=== PATIENT | female | born 1970 | race Caucasian/White ===

== ENCOUNTER → 2017-11-20 11:46 | Outpatient (REF) | payer MEDICAID, SELFPAY ==
[2017-11-20 20:00] LABS: Abs Immature Grans 0.02 k/cumm (0.0-0.09); Absolute Basophil Count 0.09 k/cumm (0.0-0.2); Absolute Eosinophil Count 0.31 k/cumm (0.0-0.7); Absolute Lymphocyte Count 3.51 k/cumm (1.2-3.4); Absolute Monocyte Count 1.31 k/cumm (0.11-0.7); Absolute Neutrophil Count 4.17 k/cumm (1.2-6.7); Eosinophils % 3.3; HCT 35.9 % (36.0-46.0); Immature Grans % 0.2; Lymphocytes % 37.3; Mean Corp. HGB Concentration 33.4 g/dL (32.0-36.0); Mean Corpuscular Volume 92.8 fL (80-95); Mean Platelet Volume 11.5 fL (8.0-11.0); Monocytes % 13.9; Neutrophils % 44.3; Platelet Count 176 x1000/uL (130-400); RBC 3.87 m/cumm (4.00-5.20); RBC Distribution Width 14.3 % (11.7-14.6); White Blood Cell Count 9.41 k/cumm (4.4-10.8)
[2017-11-20 20:24] LABS: ALT 20 U/L (12-78); AST 20 U/L (15-37); Albumin 3.7 g/dL (3.4-5.0); Alkaline Phosphatase 94 U/L (46-116); Anion Gap 11.7 mmol/L (3-11); BUN 11 mg/dL (7-18); Bilirubin, Total 0.4 mg/dL (0.2-1.0); CO2 25.3 mmol/L (21.0-32.0); CREATININE 0.77 mg/dL (0.55-1.02); Calcium 8.6 mg/dL (8.5-10.1); Chloride 104 mmol/L (98-107); Glucose 91 mg/dL (70-100); Potassium 4.1 mmol/L (3.5-5.1); Sodium 141 mmol/L (136-145); TSH 1.78 uIU/mL (0.358-3.74); Total Protein 7.4 g/dL (6.4-8.2)
[2017-11-20 21:05] LABS: ESR 20 MM/HR (0-20)
== END ==
LOC: NCHCN 11:46
PROVIDERS: PCP Nurse Practitioner Family; Visit Provider Nurse Practitioner Family
DX: F41.8 Other specified anxiety disorders (principal); N93.8 Other specified abnormal uterine and vaginal bleeding
CPT/HCPCS: 80053; 85652; 84443; 85025

== ENCOUNTER 2017-12-10 13:09 | Outpatient (REF) | payer MEDICAID, SELFPAY ==
[2017-12-10 16:07] LABS: ALT 17 U/L (12-78); AST 21 U/L (15-37); Albumin 3.3 g/dL (3.4-5.0); Alkaline Phosphatase 78 U/L (46-116); Amylase 50 U/L (25-115); Anion Gap 7.4 mmol/L (3-11); BUN 16 mg/dL (7-18); Bilirubin, Total 0.5 mg/dL (0.2-1.0); CO2 22.6 mmol/L (21.0-32.0); CREATININE 0.58 mg/dL (0.55-1.02); Calcium 7.9 mg/dL (8.5-10.1); Chloride 107 mmol/L (98-107); Glucose 80 mg/dL (70-100); Potassium 3.4 mmol/L (3.5-5.1); Sodium 137 mmol/L (136-145); Total Protein 6.9 g/dL (6.4-8.2)
[2017-12-10 17:13] LABS: Abs Immature Grans 0.02 k/cumm (0.0-0.09); Absolute Basophil Count 0.06 k/cumm (0.0-0.2); Absolute Eosinophil Count 0.23 k/cumm (0.0-0.7); Absolute Lymphocyte Count 1.78 k/cumm (1.2-3.4); Absolute Monocyte Count 1.16 k/cumm (0.11-0.7); Absolute Neutrophil Count 5.46 k/cumm (1.2-6.7); Basophils % 0.7; Eosinophils % 2.6; HCT 32.9 % (36.0-46.0); HGB 10.9 g/dL (12.0-15.5); Immature Grans % 0.2; Lymphocytes % 20.4; Mean Corp. HGB Concentration 33.1 g/dL (32.0-36.0); Mean Corpuscular Hemoglobin 30.4 pg (27.0-33.0); Mean Corpuscular Volume 91.9 fL (80-95); Monocytes % 13.3; Neutrophils % 62.8; Platelet Count 134 x1000/uL (130-400); RBC 3.58 m/cumm (4.00-5.20); White Blood Cell Count 8.71 k/cumm (4.4-10.8)
[2017-12-10 17:54] LABS: ESR 21 MM/HR (0-20)
[2017-12-10 19:07] LABS: Bilirubin Negative (Negative); Blood Large (Negative); Clarity Clear; Glucose Negative (Negative); Ketones Negative (Negative); Leukocyte Esterase Negative (Negative); Nitrite Negative (Negative); Specific Gravity 1.015 (1.005-1.025); Urobilinogen 0.2 EU/dL (Up TO 0.2)
[2017-12-10 19:27] LABS: Bacteria Many HPF (Negative); C & S Indicated? No/Sq. Contamination; Casts Negative LPF (Negative); Crystals Negative HPF (Negative); Epithelial Cells Many HPF (Negative); Mucus Negative (Negative); Other Cells Negative (Negative)
== END 2017-12-10 13:29 ==
LOC: NCHCN 13:09
PROVIDERS: PCP Nurse Practitioner Family; Visit Provider Nurse Practitioner Family
DX: R10.11 Right upper quadrant pain (principal)
CPT/HCPCS: 80053; 85652; 81003; 81015; 82150; 85025

== ENCOUNTER → 2017-12-10 13:59 | Outpatient (CLI) | payer MEDICAID, SELFPAY ==
--- NOTE | 2017-12-10 11:52 | DI.US_ITS ---
SYMPTOMS/DIAGNOSIS: RT UPPER QUAD PAIN AFTER EATING FOR 3 WKS, ? CHOLELITHIASIS , + MAJANO'S SIGN, R10.11 ABDOMINAL ULTRASOUND: The visualized liver parenchymal is normal in appearance. There is no evidence of cholelithiasis or biliary dilatation. The pancreas appears intact as visualized although the tail was not seen. The spleen has been surgically removed. The kidneys are unremarkable in appearance with no evidence of a renal mass, hydronephrosis or nephrolithiasis. The abdominal aorta and IVC are of normal diameter. CONCLUSION: Negative abdominal ultrasound.
== END ==
PROVIDERS: PCP Nurse Practitioner Family; Visit Provider Nurse Practitioner Family
DX: R10.11 Right upper quadrant pain (principal); Z90.81 Acquired absence of spleen
CPT/HCPCS: 76700

== ENCOUNTER 2017-12-11 12:00 | Emergency (ER) | payer MEDICAID, SELFPAY ==
[2017-12-11 12:14] VITALS: BP 122/76; PULSE 66; RESP 18; TEMP 36.6; O2SAT 100
--- NOTE | 2017-12-11 12:38 | W.ED.GENAD ---
Discharge Plan Disposition Patient Disposition: HOME Condition: Fair Discharge Details Chief Complaint: Abd Prob Clinical Impression: Abdominal pain Primary Care Provider: Elham Ware ED Provider: Michelle Dodge Home Meds and New Rx's Prescriptions: Continue omeprazole 40 MG capsule,delayed release(DR/EC) 40 mg PO BID Qty: 30 RF: 3 acetaminophen [Tylenol] 325 MG tablet 325 mg PO PRN PRNRF: 0 albuterol sulfate [ProAir HFA] 200 PUFF HFA aerosol inhaler 2 inh Inhalation Q4H PRN PRN (Reason: Shortness Of Breath) Qty: 1 RF: 1 No Action fluticasone [Flovent HFA] 220 mcg/actuation Hfa Aerosol Inhaler 2 puff INHALATION DAILY RF: 0 Discharge Instructions Instructions: Abdominal Pain (ED) Additional Instructions: Encourage hydration. Continue with Tylenol as needed for discomfort. Please keep upcoming appointment on Saturday with Dr. Mohamud. [facility] an [facility] at [facility] Develop new or worsening symptoms please seek care urgently once again. Try to continue with a very light diet between now and when you are evaluated by surgery. Referrals: Ashlee Mohamud MD [ [facility] STAFF PHYSICIAN] - Discharge Data Discharge Date/Time-TO BE ENTERED AT DEPARTURE: 12/11/17 14:56 Medical Decision Making MDM Narrative Medical decision making narrative: Patient presents with cc of RUQ abdominal pain x 3 weeks. Reports that pain is worse after eating. Has not noted a change based on types of food, all has the same effect. Endorses early satiety. Denies fever/chills. Has felt bloated and nauseated. Denies vomiting. States that she has not tried anything for her pain, states that, as she has history of ulcers, she was advised not to take Ibuprofen. Patient has been seen by her PCP, underwent a US which was normal. Was started on Omeprazole which she has taken in the past, has not yet noted an improvement in her symptoms. On exam, her abdomen appears bloated. She endorses pain in epigastric and RUQ region. Normal bowel sounds. No peritoneal findings. She has an area of ecchymosis on the right flank, she reports she fell 3 weeks ago. This is concerning as it coincides with the onset of her symptoms. No CVA tenderness. Normal bowel and urinary habits per patient. Will obtain CT and laboratory evaluation. Patient will be given Zofran and Morphine. Patient feels much improved after above medication. Spoke with radiologist who advised no acute abnormality on CT. Does not see any signs of trauma. Advised that her endometrium is heterogeneous but reports that this could be cycle driven. Advised f/u with pelvic ultrasound as needed. Diverticulum is noted but no acute diverticulitis. Laboratory evaluation without significant abnormality. Patient is noted to be slightly anemic but this is not new for the patient. Discussed findings with the patient. At this point, it does not seem to be her gallbladder as was her primary concern, no findings to suggest cholecystitis. No evidence of trauma on imaging. Labs are reassuring, no drop in hemoglobin or change in liver function. She has an upcoming appointment in 2 days with general surgery, I did call to confirm this appointment. Advised kulwant tthis may be associated with gastric source especially as she has history of ulcer. Advised she may need repeat EGD but that this would be discussed with general surgery. Discussed new/worsneing symptoms and when to seek care urgently once again. All of her questions and concerns were addressed, she is in agreement with this plan. Advised on BRAT diet and that she continue with Omeprazole. HPI - General Adult General Date/Time Provider Initiated Documentation: 12/11/17 12:22. Limitations to Documentation: no limitations. Information obtained by: patient. HPI Narrative: Patient is a 47-year-old female presenting today with chief complaint of right upper quadrant pain. She reports the pain is progressive and increasing over the past 3 weeks. Patient does report fall where she struck her right mid back just prior to the onset of symptoms. She reports food intake and make her symptoms worse. As noted her abdomen to be bloated, burning and pinching. Was seen by her primary care, underwent an outpatient ultrasound yesterday which showed no acute abnormalities. Laboratory evaluation was also obtained and primary was concerned that patient may have concerning pathology needing surgical intervention. Patient has not been seen by general surgeon. Patient is status post splenectomy for thrombocytopenia. Related Data Home Medications Medication Instructions Recorded Confirmed acetaminophen [Tylenol] 325 mg PO PRN PRN 12/01/13 12/13/17 fluticasone [Flovent HFA] 2 puff INHALATION DAILY 12/13/17 12/13/17 Previous Rx's Medication Instructions Recorded albuterol sulfate [ProAir HFA] 2 inh INHALATION Q4H PRN PRN #1 inh 12/07/15 Allergies Allergy/AdvReac Type Severity Reaction Status Date / Time codeine AdvReac Intermediate vomiting Unverified 08/23/16 20:20 ibuprofen AdvReac Intermediate GI upset Unverified 08/23/16 20:20 tramadol AdvReac Intermediate sick Unverified 08/23/16 20:20 General Stated Complaint: Abd Prob SANJIV: 3 Review of Systems Constitutional Reports as per HPI, Denies body ache(s), Denies chills, Denies fever(s), Denies headache(s) and Reports poor appetite ENT Denies headache(s) Cardiovascular Denies chest pain, Denies chest pain at rest, Denies chest pain with activity, Denies syncope, Denies rapid heart rate, Denies edema and Denies dyspnea on exertion Respiratory Denies chest congestion, Denies cough, Denies pain on inspiration, Denies pain with cough, Denies dyspnea on exertion and Denies wheezing Gastrointestinal Reports as per HPI Genitourinary Denies abnormal vaginal bleeding, Denies urinary frequency, Denies dyspareunia, Denies dysuria and Denies flank pain Musculoskeletal Reports back pain (states that right sided abdomenal pain can radiate toward the right side of the back. 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) GERD with esophagitis (Suspected) PTSD (post-traumatic stress disorder) (Chronic) Herniated intervertebral disc of lumbar spine (Chronic) Depression (Chronic) Nephrolithiasis (Chronic) Panic anxiety syndrome (Chronic) Phlebitis (Inactive) Social History household members: spouse caffeine: Yes Type: carbonated beverages and coffee Smoking/Tobacco Use Status: Current every day counseling given: provider counseling alcohol intake: current alcohol intake frequency: a few times a week substance use type: does not use Surgical History History of esophagogastroduodenoscopy (EGD) (Inactive) Hx of section (Inactive) Hx of appendectomy (Inactive) Hx of tubal ligation (Inactive) Exam Const General: cooperative, healthy appearing, uncomfortable (patient is moving frequently, pain is RUQ evident by her splinting this area), no acute distress, well developed and well groomed Nutritional Appearance: average body habitus Orientation: alert and awake HENNY Mouth: abnormal oral mucosae (dry mucosa) Eyes General: appearance normal, both eyes and all related structures Resp Effort & Inspection: normal respiratory effort, able to speak in complete sentences and no respiratory distress Auscultation: clear to auscultation bilaterally Cardio Rate: regular rate Rhythm: regular rhythm Heart Sounds: S1 normal and S2 normal GI Inspection: no abdominal wall ecchymosis, no edema, distended, incision (well healed) and no visible herniation Palpation: soft, no hepatosplenomegaly, no aortic enlargement, not firm, no guarding, no pulsatile masses and not rigid Percussion: normal to percussion Auscultation: normal bowel sounds Back/Spine/Pelvis Back: no CVA tenderness (patient has no pain but a small area of ecchymosis is noted over the right flank, she reports at this time that she fell 3 weeks ago and struck this area) and No Cadena-Barahona sign present Thoracic/Lumbar Spine: thoracic and lumbar spine normal to inspection Skin General skin exam: no rashes or lesions noted Neuro General: alert and awake Cognition: normal cognition Speech: speech normal Gait: normal gait Extrem General: normal to inspection, no calf tenderness bilaterally, no edema and no pedal edema Psych Appearance: grossly normal and well kempt Mental Status: mental status grossly normal Speech and Movement: speech and movement normal Mood: congruent mood Affect: normal affect Attitude: cooperative Thought Process: normal Course Vital Signs Temperature 36.6 C 12/11/17 12:14 Pulse 66 12/11/17 12:14 Respiratory Rate 12/11/17 12:14 Blood Pressure 122/76 12/11/17 12:14 Pulse Oximetry 100 12/11/17 12:14 Temperature 36.6 C 12/11/17 12:14 Pulse 66 12/11/17 12:14 Respiratory Rate 18 12/11/17 12:14 Blood Pressure 122/76 12/11/17 12:14 Pulse Oximetry 100 12/11/17 12:14
--- NOTE | 2017-12-11 12:42 | DI.CT_ITS ---
SYMPTOMS/DIAGNOSIS: RIGHT UPPER QUADRANT PAIN, BLOATING, TRAUMA [address] SCAN OF THE ABDOMEN AND PELVIS: CT scan was performed following the uneventful administration of intravenous contrast material. Comparison is 08/23/16. The visualized lung bases are clear. No evidence of a basilar pneumothorax or infiltrate is seen. The liver, pancreas, gallbladder and adrenal glands are unremarkable. The spleen is absent. The kidneys show normal and symmetric enhancement. No evidence of a solid renal mass or obstruction. The urinary bladder is intact. The central uterus appears heterogeneous. This may represent a thickened endometrium. The ovaries appear grossly unremarkable. There is diverticulosis of the colon, but no evidence of acute diverticulitis. The bowel shows no evidence of obstruction or inflammation. No findings to suggest an acute appendicitis are present. The aorta is of normal caliber. Incidental note is made of a retroaortic left renal vein. No significant abdominal or pelvic adenopathy, ascites or pneumoperitoneum is seen. No fracture is identified. IMPRESSION: 1. No evidence of acute abdominal or pelvic organ injury. No evidence of an acute fracture. 2. Heterogenous endometrium and central uterus. This may represent a normal menstrual cycle. Multiple uterine fibroids cannot be excluded. Endometrial uterine mass should also be considered. If further imaging is warranted, a pelvic ultrasound should be considered. These findings were discussed with Michelle Dodge of the Emergency Department on the date of the examination.
[2017-12-11] MEDS: Lactated Ringers 1,000 ML 1000 ML IV (12:48)
[2017-12-11] MEDS: MORPHine 10 MG/ML VIAL 2 MG IVP ×2 (12:50→13:26)
[2017-12-11] MEDS: Ondansetron 4 MG/2 ML VIAL IVP (12:51)
[2017-12-11 13:07] LABS: HCT 33.7 % (36.0-46.0); HGB 11.2 g/dL (12.0-15.5); Mean Corp. HGB Concentration 33.2 g/dL (32.0-36.0); Mean Corpuscular Hemoglobin 30.5 pg (27.0-33.0); Mean Corpuscular Volume 91.8 fL (80-95); Mean Platelet Volume 11.5 fL (8.0-11.0); RBC 3.67 m/cumm (4.00-5.20); RBC Distribution Width 13.9 % (11.7-14.6); White Blood Cell Count 10.41 k/cumm (4.4-10.8)
[2017-12-11 13:25] LABS: ALT 19 U/L (12-78); AST 20 U/L (15-37); Albumin 3.4 g/dL (3.4-5.0); Alkaline Phosphatase 82 U/L (46-116); Anion Gap 8.8 mmol/L (3-11); BUN 14 mg/dL (7-18); Bilirubin, Total 0.5 mg/dL (0.2-1.0); CO2 23.2 mmol/L (21.0-32.0); CREATININE 0.66 mg/dL (0.55-1.02); Calcium 8.2 mg/dL (8.5-10.1); Chloride 105 mmol/L (98-107); Glucose 80 mg/dL (70-100); Lipase 174 U/L (73-393); Potassium 3.5 mmol/L (3.5-5.1); Sodium 137 mmol/L (136-145); Total Protein 7.5 g/dL (6.4-8.2)
[2017-12-11 13:27] LABS: Platelet Count 101 x1000/uL (130-400)
[2017-12-11 13:39] VITALS: BP 125/73; TEMP 37
[2017-12-11] MEDS: Omnipaque 350 MG/ML 100 ML BTL IJ (14:24)
== END 2017-12-11 14:56 | disposition home or self-care (01) ==
PROVIDERS: Emergency Provider Physician Assistant; PCP Nurse Practitioner Family
DX: R10.11 Right upper quadrant pain (principal); R11.0 Nausea; Z87.11 Personal history of peptic ulcer disease; Z90.81 Acquired absence of spleen
CPT/HCPCS: 36415; 80053; 83690; 85027; 96361; 96374; 96375; 96376; 99285; 74177; J2270; J2405; J3490

== ENCOUNTER 2017-12-11 12:49 | Outpatient (REF) | payer MEDICAID, SELFPAY ==
[2017-12-11 13:13] LABS: HCT 33.9 % (36.0-46.0); HGB 11.3 g/dL (12.0-15.5); Mean Corp. HGB Concentration 33.3 g/dL (32.0-36.0); Mean Corpuscular Hemoglobin 30.8 pg (27.0-33.0); Mean Corpuscular Volume 92.4 fL (80-95); Mean Platelet Volume 11.6 fL (8.0-11.0); RBC 3.67 m/cumm (4.00-5.20); White Blood Cell Count 10.65 k/cumm (4.4-10.8)
[2017-12-11 13:35] LABS: Platelet Count 107 x1000/uL (130-400)
== END 2017-12-11 13:09 ==
LOC: NCHCN 12:49
PROVIDERS: PCP Nurse Practitioner Family; Visit Provider Nurse Practitioner Family
DX: R10.11 Right upper quadrant pain (principal)
CPT/HCPCS: 85027

== ENCOUNTER 2017-12-16 10:02 | PSDC | payer MEDICAID, SELFPAY ==
--- NOTE | 2017-12-16 11:03 | PDOC.ANES ---
Pt presented to [facility] for her gastroscopy. She states she fell a few days ago and has had some trouble breathing as well as left lateral/posterior rib pain. She states she has severe pain when coughing and breathing, there is no noted increased work of breathing and pt. is self-splinting her ribs. Did not palpate ribs, however did note large bruise to left lateral rib area. Discussed likelihood of rib fracture and advised patient the safest course of action would be to be seen in the ED today and then followup to reschedule EGD procedure in 4-6 weeks depending on what the final outcome is in the ED. Pt. agrees with this plan and will go directly to the ED to be seen. Dr. Mohamud was also made aware.
== END 2017-12-16 10:30 | disposition other institution (70) ==
LOC: SUR 10:02
PROVIDERS: PCP Nurse Practitioner Family; Visit Provider Surgery
DX: R10.13 Epigastric pain (principal); Z53.09 Procedure and treatment not carried out because of other contraindication; R07.81 Pleurodynia; Y66 Nonadministration of surgical and medical care
CPT/HCPCS: 43239

== ENCOUNTER 2017-12-16 10:26 | Emergency (ER) | payer MEDICAID, SELFPAY ==
[2017-12-16 10:29] VITALS: BP 119/70; PULSE 78; RESP 16; TEMP 36.4; O2SAT 100
--- NOTE | 2017-12-16 11:06 | W.ED.GENAD ---
Discharge Plan Disposition Patient Disposition: HOME Condition: Stable Discharge Details Chief Complaint: Nk/Back Pain Clinical Impression: Contusion of rib on left side Primary Care Provider: Elham Ware ED Provider: Easton Valverde Home Meds and New Rx's Prescriptions: New cyclobenzaprine 10 mg tablet 10 mg PO TID PRN (Reason: pain) Qty: 20 RF: 0 Continue omeprazole 40 MG capsule,delayed release(DR/EC) 40 mg PO BID Qty: 30 RF: 3 acetaminophen [Tylenol] 325 MG tablet 325 mg PO PRN PRNRF: 0 albuterol sulfate [ProAir HFA] 200 PUFF HFA aerosol inhaler 2 inh Inhalation Q4H PRN PRN (Reason: Shortness Of Breath) Qty: 1 RF: 1 fluticasone [Flovent HFA] 220 mcg/actuation Hfa Aerosol Inhaler 2 puff INHALATION DAILY RF: 0 trazodone 100 mg Tablet 1 tab PO HS RF: 0 Discharge Instructions Instructions: Rib Contusion (ED) Additional Instructions: follow up with your primary care provider in 1-2 weeks if you are not improving if you have severe worsening of pain or worsening trouble breathing return to the emergency department Discharge Data Discharge Physician: Easton Valverde Medical Decision Making [facility] Narrative Medical decision making narrative: 47 yo female states Saturday night she was walking down stairs and slipped and landed on her left chest on the stairs. Denies hitting head or losing consciousness. She has had pain in the left chest area since so came here. no headache, neck pain even on rom and no abdomnal pain or extremity pain. Given location of pain will xray to eval for rib fx vs ptx though I suspsect contusion vs muscle spasm pt's xray on my read shows no acute findings, suspect muscle spasm vs rib contusion, will d/c home, return precautions given Differential Diagnosis rib contusion, muscle spasm, ptx Imaging Data Radiologic Study: Attestation: I personally reviewed and interpreted this imaging study as follows: Imaging: X-Ray My impression: no acute findings on chest xray HPI - General Adult General Mode of arrival: ambulatory. Date/Time Provider Initiated Documentation: 12/16/17 10:58. Limitations to Documentation: no limitations. Information obtained by: patient. History of Present Illness 47 year old F presents to the emergency department with the chief complaint of left sided rib pain, described as moderate, with intensity rated at 5. Quality is described as sharp, and is localized to the chest. Patient reports no radiation. Patient started experiencing this day(s) (3) and it has been constant. No relieving factors improve symptom(s), No exacerbating factors reported . Patient notes no other symptoms.. Patient did receive the following treatments prior to arrival, other (tylenol) Related Data Home Medications Medication Instructions Recorded Confirmed acetaminophen [Tylenol] 325 mg PO PRN PRN 12/01/13 12/16/17 fluticasone [Flovent HFA] 2 puff INHALATION DAILY 12/13/17 12/16/17 trazodone 1 tab PO HS 12/16/17 12/16/17 Previous Rx's Medication Instructions Recorded albuterol sulfate [ProAir HFA] 2 inh INHALATION Q4H PRN PRN #1 inh 12/07/15 cyclobenzaprine 10 mg PO TID PRN #20 tab 12/16/17 Allergies Allergy/AdvReac Type Severity Reaction Status Date / Time codeine AdvReac Intermediate vomiting Unverified 12/16/17 10:31 ibuprofen AdvReac Intermediate GI upset Unverified 12/16/17 10:31 tramadol AdvReac Intermediate sick Unverified 12/16/17 10:31 General Stated Complaint: Nk/Back Pain SANJIV: 4 Review of Systems Review of Systems All systems reviewed & are unremarkable except as noted in HPI and below Constitutional Denies chills, Denies fever(s) and Denies weakness Eyes Patient Denies loss of vision ENT Denies change in voice Cardiovascular Denies dyspnea Respiratory Denies dyspnea Gastrointestinal Denies abdominal pain, Denies nausea and Denies vomiting Genitourinary Denies dysuria Musculoskeletal Denies joint swelling Integumentary/Breasts Denies rash Neurologic Denies loss of vision and Denies weakness Psychiatric Denies depression Endocrine Denies cold intolerance and Denies heat intolerance Allergic/Immunologic Reports urticaria [facility] Medical History Post-splenectomy (Inactive) Gastric ulcer (Resolved) Migraine (Chronic) Gestational diabetes (Resolved) 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) GERD with esophagitis (Suspected) PTSD (post-traumatic stress disorder) (Chronic) Herniated intervertebral disc of lumbar spine (Chronic) Depression (Chronic) Nephrolithiasis (Chronic) Panic anxiety syndrome (Chronic) Phlebitis (Inactive) Social History household members: spouse caffeine: Yes Type: carbonated beverages and coffee Smoking/Tobacco Use Status: Current every day counseling given: provider counseling alcohol intake: current alcohol intake frequency: a few times a week substance use type: does not use Surgical History History of esophagogastroduodenoscopy (EGD) (Inactive) Hx of section (Inactive) Hx of appendectomy (Inactive) Hx of tubal ligation (Inactive) Exam Const General: no acute distress Orientation: alert HENMT Head: normal to inspection Ears: external ears normal General nose exam: external nose normal Mouth: moist mucous membranes Eyes General: appearance normal, both eyes and all related structures Neck Neck: normal visual inspection Chest Chest: other (brusiing of left mid chest in mid axillary line and tenderness in this area without palpable abnormalities) Resp Effort & Inspection: normal respiratory effort, able to speak in complete sentences and respiratory effort not decreased Auscultation: clear to auscultation bilaterally Cardio Rate: regular rate Skin General skin exam: no rashes or lesions noted Neuro General: alert and oriented x3 Extrem General: normal to inspection Psych Mental Status: mental status grossly normal Course Vital Signs Temperature 36.4 C L 12/16/17 10:29 Pulse 78 12/16/17 10:29 Respiratory Rate 16 12/16/17 10:29 Blood Pressure 119/70 12/16/17 10:29 Pulse Oximetry 100 12/16/17 10:29 Temperature 36.4 C L 12/16/17 10:29 Pulse 78 12/16/17 10:29 Respiratory Rate 16 12/16/17 10:29 Blood Pressure 119/70 12/16/17 10:29 Pulse Oximetry 100 12/16/17 10:29
[2017-12-16] MEDS: Cyclobenzaprine 10 MG TAB PO (11:10)
--- NOTE | 2017-12-16 11:10 | ED.GENADUL_ITS ---
Discharge Plan Disposition Patient Disposition: HOME Condition: Stable Discharge Details Chief Complaint: Nk/Back Pain Clinical Impression: Contusion of rib on left side Primary Care Provider: Elham Ware ED Provider: Easton Valverde Home Meds and New Rx's Prescriptions: New cyclobenzaprine 10 mg tablet 10 mg PO TID PRN (Reason: pain) Qty: 20 RF: 0 Continue omeprazole 40 MG capsule,delayed release(DR/EC) 40 mg PO BID Qty: 30 RF: 3 acetaminophen [Tylenol] 325 MG tablet 325 mg PO PRN PRNRF: 0 albuterol sulfate [ProAir HFA] 200 PUFF HFA aerosol inhaler 2 inh Inhalation Q4H PRN PRN (Reason: Shortness Of Breath) Qty: 1 RF: 1 fluticasone [Flovent HFA] 220 mcg/actuation Hfa Aerosol Inhaler 2 puff INHALATION DAILY RF: 0 trazodone 100 mg Tablet 1 tab PO HS RF: 0 Discharge Instructions Instructions: Rib Contusion (ED) Additional Instructions: follow up with your primary care provider in 1-2 weeks if you are not improving if you have severe worsening of pain or worsening trouble breathing return to the emergency department Discharge Data Discharge Physician: Easton Valverde Medical Decision Making [facility] Narrative Medical decision making narrative: 47 yo female states Saturday night she was walking down stairs and slipped and landed on her left chest on the stairs. Denies hitting head or losing consciousness. She has had pain in the left chest area since so came here. no headache, neck pain even on rom and no abdomnal pain or extremity pain. Given location of pain will xray to eval for rib fx vs ptx though I suspsect contusion vs muscle spasm pt's xray on my read shows no acute findings, suspect muscle spasm vs rib contusion, will d/c home, return precautions given Differential Diagnosis rib contusion, muscle spasm, ptx Imaging Data Radiologic Study: Attestation: I personally reviewed and interpreted this imaging study as follows: Imaging: X-Ray My impression: no acute findings on chest xray HPI - General Adult General Mode of arrival: ambulatory . Date/Time Provider Initiated Documentation: 12/16/17 10:58 . Limitations to Documentation: no limitations . Information obtained by: patient . History of Present Illness 47 year old F presents to the emergency department with the chief complaint of left sided rib pain, described as moderate, with intensity rated at 5. Quality is described as sharp, and is localized to the chest. Patient reports no radiation. Patient started experiencing this day(s) (3) and it has been constant. No relieving factors improve symptom(s), No exacerbating factors reported . Patient notes no other symptoms.. Patient did receive the following treatments prior to arrival, other (tylenol) Related Data Home Medications Medication Instructions Recorded Confirmed acetaminophen [Tylenol] 325 mg PO PRN PRN 12/01/13 12/16/17 fluticasone [Flovent HFA] 2 puff INHALATION DAILY 12/13/17 12/16/17 trazodone 1 tab PO HS 12/16/17 12/16/17 Previous Rx's Medication Instructions Recorded albuterol sulfate [ProAir HFA] 2 inh INHALATION Q4H PRN PRN #1 inh 12/07/15 cyclobenzaprine 10 mg PO TID PRN #20 tab 12/16/17 Allergies Allergy/AdvReac Type Severity Reaction Status Date / Time codeine AdvReac Intermediate vomiting Unverified 12/16/17 10:31 ibuprofen AdvReac Intermediate GI upset Unverified 12/16/17 10:31 tramadol AdvReac Intermediate sick Unverified 12/16/17 10:31 General Stated Complaint: Nk/Back Pain SANJIV: 4 Review of Systems Review of Systems All systems reviewed & are unremarkable except as noted in HPI and below Constitutional Denies chills, Denies fever(s) and Denies weakness Eyes Patient Denies loss of vision ENT Denies change in voice Cardiovascular Denies dyspnea Respiratory Denies dyspnea Gastrointestinal Denies abdominal pain, Denies nausea and Denies vomiting Genitourinary Denies dysuria Musculoskeletal Denies joint swelling Integumentary/Breasts Denies rash Neurologic Denies loss of vision and Denies weakness Psychiatric Denies depression Endocrine Denies cold intolerance and Denies heat intolerance Allergic/Immunologic Reports urticaria [facility] Medical History Post-splenectomy (Inactive) Gastric ulcer (Resolved) Migraine (Chronic) Gestational diabetes (Resolved) 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) GERD with esophagitis (Suspected) PTSD (post-traumatic stress disorder) (Chronic) Herniated intervertebral disc of lumbar spine (Chronic) Depression (Chronic) Nephrolithiasis (Chronic) Panic anxiety syndrome (Chronic) Phlebitis (Inactive) Social History household members: spouse caffeine: Yes Type: carbonated beverages and coffee Smoking/Tobacco Use Status: Current every day counseling given: provider counseling alcohol intake: current alcohol intake frequency: a few times a week substance use type: does not use Surgical History History of esophagogastroduodenoscopy (EGD) (Inactive) Hx of section (Inactive) Hx of appendectomy (Inactive) Hx of tubal ligation (Inactive) Exam Const General: no acute distress Orientation: alert HENMT Head: normal to inspection Ears: external ears normal General nose exam: external nose normal Mouth: moist mucous membranes Eyes General: appearance normal, both eyes and all related structures Neck Neck: normal visual inspection Chest Chest: other (brusiing of left mid chest in mid axillary line and tenderness in this area without palpable abnormalities) Resp Effort & Inspection: normal respiratory effort, able to speak in complete sentences and respiratory effort not decreased Auscultation: clear to auscultation bilaterally Cardio Rate: regular rate Skin General skin exam: no rashes or lesions noted Neuro General: alert and oriented x3 Extrem General: normal to inspection Psych Mental Status: mental status grossly normal Course Vital Signs Temperature 36.4 C L 12/16/17 10:29 Pulse 78 12/16/17 10:29 Respiratory Rate 16 12/16/17 10:29 Blood Pressure 119/70 12/16/17 10:29 Pulse Oximetry 100 12/16/17 10:29 Temperature 36.4 C L 12/16/17 10:29 Pulse 78 12/16/17 10:29 Respiratory Rate 16 12/16/17 10:29 Blood Pressure 119/70 12/16/17 10:29 Pulse Oximetry 100 12/16/17 10:29
--- NOTE | 2017-12-16 11:28 | DI.RAD_ITS ---
SYMPTOM/DIAGNOSIS: LT SIDED CHEST PAIN PA AND LATERAL CHEST: Comparison is made with 04/05/17. The cardiac and mediastinal contours have a normal appearance. The lungs are well inflated and clear. No infiltrate, effusion or pneumothorax is seen. IMPRESSION: Negative chest xray.
[2017-12-16 12:28] VITALS: BP 119/70; PULSE 78; RESP 16; TEMP 36.4; O2SAT 100
== END 2017-12-16 13:07 | disposition home or self-care (01) ==
PROVIDERS: Emergency Provider Emergency Medicine; PCP Nurse Practitioner Family
DX: S20.212A Contusion of left front wall of thorax, initial encounter (principal); W10.8XXA Fall (on) (from) other stairs and steps, initial encounter
CPT/HCPCS: 99284; 71046; 99283

== ENCOUNTER 2017-12-20 12:46 | Outpatient (REF) | payer MEDICAID, SELFPAY ==
[2017-12-23 07:26] LABS: Codeine Negative ng/mL (Cutoff: 25); Dihydrocodeine 517 ng/mL (Cutoff: 25); Hydrocodone 1681 ng/mL (Cutoff: 25); Hydromorphone 186 ng/mL (Cutoff: 25); Morphine Negative ng/mL (Cutoff: 25); Naloxone Negative ng/mL (Cutoff: 25); Norhydrocodone 1608 ng/mL (Cutoff: 25); Noroxycodone Negative ng/mL (Cutoff: 25); Noroxymorphone Negative ng/mL (Cutoff: 25); Opiates Interpretation Positive.
== END 2017-12-20 13:06 ==
LOC: NCHCN 12:46
PROVIDERS: PCP Nurse Practitioner Family; Visit Provider Nurse Practitioner Family
DX: R07.81 Pleurodynia (principal)
CPT/HCPCS: 80333; 80361

== ENCOUNTER 2019-07-21 11:52 | Outpatient (REF) | payer MEDICAID, SELFPAY ==
--- NOTE | 2019-07-21 10:30 | PAPFT_PTH ---
PATIENT: Carmela Rose LOC: [facility]#:[id number] AGE/SX: 49/F ROOM: RE07/21/[address]: Christopher Pinedo : 1970 BED: DIS: 07/21/2019 SPEC #: [id number] RECD: 07/24/19 12:12 STATUS: KELLEY REQ #: [id number] BELLA: 07/21/19 10:[address]: Christopher Pinedo [facility]PT[facility] Cytology RECD BY: Donnell Sanderson Tissues: 1 - CX/ENDOCX FOR PAP SMEARS Procedures: PAP THIN PREP/UVM Screening HPV DNA PROBE Comments: [id number]
[2019-07-21 17:22] LABS: Abs Immature Grans 0.05 k/cumm (0.0-0.09); Absolute Basophil Count 0.05 k/cumm (0.0-0.2); Absolute Eosinophil Count 0.02 k/cumm (0.0-0.7); Absolute Monocyte Count 2.58 k/cumm (0.11-0.7); Absolute Neutrophil Count 12.32 k/cumm (1.2-6.7); Basophils % 0.3; Eosinophils % 0.1; HCT 33.4 % (36.0-46.0); HGB 10.7 g/dL (12.0-15.5); Immature Grans % 0.3 %; Lymphocytes % 16.2; Mean Corpuscular Hemoglobin 30.4 pg (27.0-33.0); Mean Corpuscular Volume 94.9 fL (80-95); Mean Platelet Volume 12.1 fL (8.0-11.0); Monocytes % 14.4; Neutrophils % 68.7; Platelet Count 100 x1000/uL (130-400); RBC 3.52 m/cumm (4.00-5.20); RBC Distribution Width 13.2 % (11.7-14.6); White Blood Cell Count 17.93 k/cumm (4.4-10.8)
[2019-07-21 17:28] LABS: ALT 56 U/L (14-59); AST 56 U/L (15-37); Albumin 3.5 g/dL (3.4-5.0); Alkaline Phosphatase 119 U/L (46-116); Anion Gap 12.6 mmol/L (3-11); BUN 13 mg/dL (7-18); Bilirubin, Total 0.5 mg/dL (0.2-1.0); C-Reactive Protein 19.11 mg/dL (0.0-0.3); CO2 24.4 mmol/L (21.0-32.0); CREATININE 0.85 mg/dL (0.55-1.02); Calcium 8.3 mg/dL (8.5-10.1); Chloride 105 mmol/L (98-107); Glucose 86 mg/dL (74-106); Potassium 3.3 mmol/L (3.5-5.1); Sodium 142 mmol/L (136-145); Total Protein 7.6 g/dL (6.4-8.2)
[2019-07-21 18:56] LABS: Bilirubin Negative (Negative); Blood Large (Negative); Clarity Sl Cloudy (Clear); Glucose Negative (Negative); Ketones Negative (Negative); Leukocyte Esterase Moderate (Negative); Nitrite Positive (Negative); Specific Gravity 1.025 (1.005-1.025); Urobilinogen 0.2 EU/dL (Up TO 0.2)
[2019-07-21 19:35] LABS: Diff Comment Diff Reviewed; Howell-Jolly Bodies 1+
[2019-07-21 19:43] LABS: Bacteria Many HPF (Negative); C & S Indicated? Yes; Casts Negative LPF (Negative); Crystals Negative HPF (Negative); Epithelial Cells Negative HPF (Negative); Mucus Negative (Negative); Other Cells Negative (Negative); RBC 20-50 HPF (0-2); WBC >50 HPF (0-5)
[2019-07-23 11:39] LABS: Hepatitis C Ab w Rflx HCV PCR Negative (Negative)
[2019-07-23 11:40] LABS: HIV-1/2 Ag & Ab Screen Negative (Negative)
[2019-07-23 12:19] LABS: Chlamydia Result Negative (Negative); GC Result Negative (Negative)
== END 2019-07-21 12:12 ==
LOC: NCHCN 11:52
PROVIDERS: PCP Nurse Practitioner Family; Visit Provider Family Medicine
DX: R10.2 Pelvic and perineal pain (principal); Z11.3 Encounter for screening for infections with a predominantly sexual mode of transmission; Z11.4 Encounter for screening for human immunodeficiency virus [HIV]; Z11.59 Encounter for screening for other viral diseases; Z12.4 Encounter for screening for malignant neoplasm of cervix; Z11.51 Encounter for screening for human papillomavirus (HPV)
CPT/HCPCS: 80053; 86803; 87077; 87389; 87491; 87591; 88142; 81003; 81015; 85025; 86140; 87086; 87186; 87624

== ENCOUNTER 2019-07-21 13:00 | Outpatient (CLI) | payer MEDICAID, SELFPAY ==
--- NOTE | 2019-07-21 13:23 | DI.CT_ITS ---
EXAM: CT ABDOMEN PELVIS W CLINICAL HISTORY: SEVERE ACUTE PELVIC PAIN, FEVER, HEMATURIA TECHNIQUE: Imaging Protocol: Axial computed tomography images with coronal and sagittal reformatted images were created and reviewed CONTRAST MATERIAL: Intravenous: Omnipaque 350 Contrast volume:100 mL Oral: Yes FINDINGS: ABDOMEN: Lung Bases: Normal where visualized. Liver: Normal density. No measurable mass. Portal, Superior Mesenteric, and Splenic Veins: Unremarkable. Gallbladder and Biliary Tract: No radiodense calculus or dilation. Pancreas: Normal density, no abnormal calcifications or inflammatory process. Spleen: Status post splenectomy. Adrenals: No masses seen. Kidneys: Normal size, contour and axis. No radiodense stones or obstructive uropathy. There are wedge -shaped peripheral areas of decreased attenuation seen bilaterally most suggestive of acute pyeloneph ritis. There is mild perinephric stranding around the kidneys. Abdominal Aorta: Abdominal portion non-dilated. Note is made of a retroaortic left renal vein. Bowel: No obstruction or bowel wall thickening. S/p appendectomy. Colonic diverticulosis but no reji dence of acute diverticulitis. Peritoneal Cavity: No ascites, collection or mesenteric inflammatory response. Lymph Nodes: Within normal limits. Bones: Unremarkable. Soft Tissues: Unremarkable. PELVIS: Bladder: Symmetric distention, no gross wall thickening. Reproductive Organs: Unremarkable as visualized. Lymph Nodes: Within normal limits. Bones: Within normal limits. IMPRESSION: 1. Areas of decreased enhancement within the kidneys bilaterally suggestive of acute pyelonephritis. No abscess is identified. 2. No acute osseous abnormality. There are no findings in the spine to suggest discitis 3. Status post appendectomy and splenectomy. 4. There is colonic diverticulosis but no evidence of acute diverticulitis. RADIATION DOSE DELIVERED: DATA REPOSITORY: All CT scans at this facility are submitted to the National Radiology Data Registry (NRDR) Dose Index Registry (DIR) with the [employer] (ACR). RADIATION OPTIMIZATION: All CT scans at this facility use at least one of these dose optimization te chniques: automated exposure control; mA and/or kV adjustment per patient size (includes targeted exa ms where dose is matched to clinical indication); or iterative reconstruction.
[2019-07-21] MEDS: Normal Saline - Diluent 50 ML VIAL IV (13:26)
[2019-07-21] MEDS: Omnipaque 350 MG/ML 50 ML BTL IJ (13:27)
[2019-07-21] MEDS: Omnipaque 350 MG/ML 100 ML BTL IJ (13:27)
[2019-07-21] MEDS: Breeza Beverage 473 ML BTL PO (13:38)
== END 2019-07-21 13:20 ==
PROVIDERS: PCP Nurse Practitioner Family; Visit Provider Family Medicine
DX: R10.2 Pelvic and perineal pain (principal); R50.9 Fever, unspecified; R31.9 Hematuria, unspecified; N10 Acute pyelonephritis; K57.30 Diverticulosis of large intestine without perforation or abscess without bleeding; Z90.81 Acquired absence of spleen; Z90.89 Acquired absence of other organs
CPT/HCPCS: 74177; J3490; Q9967

== ENCOUNTER 2020-12-12 03:32 | Emergency (ER) | payer OTHER, SELFPAY ==
--- NOTE | 2020-12-12 03:30 | DI.RAD_ITS ---
Exam(s) XR ELBOW LT COMPLETE EXAM: XR ELBOW LT COMPLETE CLINICAL HISTORY: trauma to lateral left elbow. TECHNIQUE: 2D digital imaging was performed. COMPARISON: No exams were available for comparison FINDINGS: BONES: No acute fracture is present. No bony destructive lesion is seen. Mild periarticular spurring. JOINTS: The elbow is normally aligned. No joint effusion is seen. SOFT TISSUE: Normal. IMPRESSION: Mild degenerative changes. DATA REPOSITORY: RADIATION DOSE DELIVERED:
[2020-12-12 03:37] VITALS: BP 149/75; PULSE 83; RESP 16; TEMP 36.4; O2SAT 100
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
--- NOTE | 2020-12-12 04:19 | DI.VRAD_ITS ---
PROCEDURE INFORMATION: Exam: XR Left Elbow Exam date and time: 12/12/2020 3:44 AM Age: 50 years old Clinical indication: Injury or trauma; Fall; Work related; Blunt trauma (contusions or hematomas); Injury date: 12/12/20; Injury details: [place] to left lateral elbow TECHNIQUE: Imaging protocol: XR Left elbow. Views: 3 or more views. COMPARISON: No relevant prior studies available. FINDINGS: Bones/joints: Osteophyte formation present about the radial head. No evidence of acute fracture. Soft tissues: Mild soft tissue swelling IMPRESSION: No evidence of acute fracture Dictated and Authenticated by: Chayo Merlos MD. Ordering:GILES Bingham MD
--- NOTE | 2020-12-12 04:28 | NUR.NOTE ---
Nursing Note: Kali wrap applied to left elbow, CSM intact pre and post application.
== END 2020-12-12 04:29 | disposition home or self-care (01) ==
PROVIDERS: Emergency Provider Student in an Organized Health Care Education/Training Program; PCP Nurse Practitioner Family
DX: S50.02XA Contusion of left elbow, initial encounter (principal); W22.09XA Striking against other stationary object, initial encounter; Y99.0 Civilian activity done for income or pay
CPT/HCPCS: 99283; 73080

== ENCOUNTER 2020-12-23 19:19 | Outpatient (REF) | payer MEDICAID, SELFPAY ==
[2020-12-25 15:29] LABS: COVID-19 RT-PCR UVMMC Result Negative (Negative)
== END 2020-12-23 19:20 | disposition home or self-care (01) ==
LOC: LBN 19:19
PROVIDERS: PCP Nurse Practitioner Family; Visit Provider Internal Medicine
DX: Z20.822 Contact with and (suspected) exposure to COVID-19 (principal)
CPT/HCPCS: U0003

== ENCOUNTER 2021-01-23 14:42 | Outpatient (CLI) | payer MEDICAID, SELFPAY ==
--- NOTE | 2021-01-23 | DI.RAD_ITS ---
Exam(s) XR CHEST 2V PA LATERAL EXAM: XR CHEST 2V PA LATERAL CLINICAL HISTORY: COUGH, R05. TECHNIQUE: 2D digital imaging was performed. COMPARISON: Chest x-ray December 2017 FINDINGS: Heart size is normal. The mediastinum is not widened. Lungs are clear. No infiltrates nor pleural effusions. IMPRESSION: No acute pulmonary findings. DATA REPOSITORY: RADIATION DOSE DELIVERED:
== END 2021-01-23 15:02 ==
PROVIDERS: PCP Nurse Practitioner Family; Visit Provider Physician Assistant Medical
DX: R05.8 Other specified cough (principal)
CPT/HCPCS: 71046

== ENCOUNTER 2021-01-28 08:10 | Outpatient (REF) | payer MEDICAID, SELFPAY ==
[2021-01-30 15:34] LABS: COVID-19 RT-PCR UVMMC Result Negative (Negative)
== END 2021-01-28 08:11 | disposition home or self-care (01) ==
LOC: NCHCN 08:10
PROVIDERS: PCP Nurse Practitioner Family; Visit Provider Internal Medicine
DX: Z20.822 Contact with and (suspected) exposure to COVID-19 (principal)
CPT/HCPCS: U0003

== ENCOUNTER 2021-06-19 00:39 | Outpatient (CLI) | payer MEDICAID, SELFPAY ==
--- NOTE | 2021-06-19 | DI.RAD_ITS ---
Exam(s) XR CERVICAL SPINE COMP 4-5V EXAM: XR CERVICAL SPINE COMP 4-5V CLINICAL HISTORY: UPPER EXT NEUROPATHY, G58.90. TECHNIQUE: 2D digital imaging was performed. COMPARISON: No exams were available for comparison FINDINGS: BONES: No fracture or destructive lesion. Vertebral bodies are unremarkable. Facet degenerative cleve nges are noted, [id number]. No visible neural foraminal narrowing. DISKS: Intervertebral disc spaces are maintained. ALIGNMENT: Cervical spinal alignment is within normal limits. The odontoid and atlantoaxial articulat ions are normal. SOFT TISSUE: Normal. The lung apices are clear. IMPRESSION: [id number] facet degenerative changes. No significant visible neural foraminal narrowing. DATA REPOSITORY: RADIATION DOSE DELIVERED:
== END 2021-06-19 00:59 ==
PROVIDERS: PCP Nurse Practitioner Family; Visit Provider Nurse Practitioner Family
DX: M47.812 Spondylosis without myelopathy or radiculopathy, cervical region (principal); G56.81 Other specified mononeuropathies of right upper limb; G56.82 Other specified mononeuropathies of left upper limb
CPT/HCPCS: 72050

== ENCOUNTER 2021-06-27 19:26 | Emergency (ER) | payer MEDICAID, SELFPAY ==
[2021-06-27 19:34] VITALS: BP 128/81; PULSE 88; RESP 16; TEMP 37; O2SAT 98
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
[2021-06-27] MEDS: Lidocaine 1% Multi-Dose 50 ML VIAL (20:00)
--- NOTE | 2021-06-28 17:28 | NUR.NOTE ---
Nursing Note: Called stating that she has bumped her finger that was glued last santi multiple times and it is oozing a little blood. Advised to put a dressing on it. Come back to ER if split open/unable to control bleeding. Verbalizes understanding.
== END 2021-06-27 20:43 | disposition home or self-care (01) ==
PROVIDERS: Emergency Provider Physician Assistant; PCP Nurse Practitioner Family
DX: S61.210A Laceration without foreign body of right index finger without damage to nail, initial encounter (principal); W26.8XXA Contact with other sharp object(s), not elsewhere classified, initial encounter
CPT/HCPCS: 12001; 29130

== ENCOUNTER 2021-11-02 16:39 | Emergency (ER) | payer MEDICAID, SELFPAY ==
[2021-11-02 16:44] VITALS: BP 126/68; PULSE 89; RESP 16; TEMP 37.1; O2SAT 97
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
[2021-11-02] MEDS: Lidocaine 5% Patch 1 PATCH TP (18:00)
[2021-11-02] MEDS: Ketorolac 60 MG/2 ML VIAL IM (18:00)
[2021-11-02] MEDS: Cyclobenzaprine 10 MG TAB PO (18:05)
[2021-11-02] MEDS: oxyCODONE 5 mg/Acetaminophen 325 mg TAB 1 TAB PO (18:11)
[2021-11-02 19:12] VITALS: BP 128/74; RESP 66; O2SAT 98
== END 2021-11-02 22:37 | disposition home or self-care (01) ==
PROVIDERS: Emergency Provider Physician Assistant; PCP Nurse Practitioner Family
DX: M54.50 Low back pain, unspecified (principal); J45.909 Unspecified asthma, uncomplicated; F17.200 Nicotine dependence, unspecified, uncomplicated
CPT/HCPCS: 96372; 99284; J1885

== ENCOUNTER → 2021-12-15 00:33 | Outpatient (CLI) | payer MEDICAID, SELFPAY ==
--- NOTE | 2021-12-15 | DI.MRI_ITS ---
Exam(s) MR LUMBAR SPINE WO EXAM: MR LUMBAR SPINE WO CLINICAL HISTORY: LUMBAR BACK PAIN W/ RADICULOPATHY M54.16 HERNIATED DISC M53.80. TECHNIQUE: Multiplanar multisequence MRI of the Lumbar spine was performed. COMPARISON: CT CT ABDOMEN PELVIS W from 07/21/2019 FINDINGS: Bones: The last intervertebral disc space is designated the L5/S1 level for the numbering purpose of this examination. The vertebral body heights are well maintained. Alignment is satisfactory. The si gnal characteristics are unremarkable. Cord: The conus tip ends at the T12 level. It is of normal size and signal intensity. T12-L1: No disc herniations or bulges are present. No central spinal canal or neural foraminal stenos is. L1-2: No disc herniations or bulges are present. No central spinal canal or neural foraminal stenosis . L2-3: No disc herniations or bulges are present. No central spinal canal or neural foraminal stenosis . L3-4: No disc herniations or bulges are present. No central spinal canal or neural foraminal stenosis . L4-5: No disc herniations or bulges are present. No central spinal canal or neural foraminal stenosis . L5-S1: There is a diffuse disc bulge eccentric to the left. There is mild extension posterior to the S1 vertebral body. There also may be a mild impression upon the left S1 nerve root. No central spi nal canal or neural foraminal stenosis. Soft tissues: The visualized SI joints and sacrum are well maintained. The paraspinal soft tissues ar e unremarkable. IMPRESSION: L5-S1 eccentric disc bulge to the left. There is mild extension posterior to the S1 vertebral body a nd a question of a mild impression upon the left S1 nerve root. DATA REPOSITORY:
== END ==
PROVIDERS: PCP Nurse Practitioner Family; Visit Provider Nurse Practitioner Family
DX: M51.17 Intervertebral disc disorders with radiculopathy, lumbosacral region (principal)
CPT/HCPCS: 72148

== ENCOUNTER 2022-03-28 14:01 | Emergency (ER) | payer MEDICAID, SELFPAY ==
[2022-03-28 14:09] VITALS: BP 129/59; PULSE 89; RESP 18; TEMP 37.4; O2SAT 99
--- NOTE | 2022-03-28 14:36 | DI.RAD_ITS ---
Exam(s) XR ANKLE LT COMPLETE EXAM: XR ANKLE LT COMPLETE CLINICAL HISTORY: pain, fall. TECHNIQUE: 2D digital imaging was performed. COMPARISON: CR RIGHT ANKLE COMPLETE from 03/23/2011 FINDINGS: 3 views There is soft tissue swelling laterally. No evidence of lateral malleolus fracture and no evidence o f fracture of the medial and posterior malleoli. However, on the lateral view there is a small osteo phytic density noted immediately posterior to the posterior process of the talus, this measuring 1 mi llimeter. Possible avulsion fracture at this level. Small inferior calcaneal spur noted. No osseous tarsal coalition. IMPRESSION: There is a 1 millimeter calcific density noted posteriorly in the ankle adjacent to the posterior asp ect of the posterior process of the talus. There is possibly that this may represent a small avulsio n fracture at this level. There is swelling over the lateral malleolus but no lateral malleolus fracture identified. DATA REPOSITORY: RADIATION DOSE DELIVERED:
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
[2022-03-28] MEDS: Ibuprofen 600 MG TAB 400 MG PO (14:59)
== END 2022-03-28 15:21 | disposition home or self-care (01) ==
PROVIDERS: Emergency Provider Student in an Organized Health Care Education/Training Program; PCP Nurse Practitioner Family
DX: S92.102A Unspecified fracture of left talus, initial encounter for closed fracture (principal); J45.909 Unspecified asthma, uncomplicated; W10.9XXA Fall (on) (from) unspecified stairs and steps, initial encounter
CPT/HCPCS: 99283; 73610

== ENCOUNTER 2023-12-05 10:28 | Outpatient (CLI) | payer MEDICAID, SELFPAY ==
[2023-12-05 10:00] LABS: Abs Immature Grans 0.03 10^3/uL (0.0-0.06); Absolute Basophil Count 0.11 10^3/uL (0.0-0.2); Absolute Monocyte Count 1.07 10^3/uL (0.1-0.8); Absolute Neutrophil Count 7.55 10^3/uL (1.2-6.7); Basophils % 0.9 %; Eosinophils % 1.6 %; HCT 43.7 % (36.0-46.0); HGB 14.8 g/dL (11.2-15.7); Immature Grans % 0.2 %; Lymphocytes % 26.6 %; MCH 32.9 pg (27.0-33.0); MCHC 33.9 % (32.0-36.0); MCV 97 fL (80-95); MPV 11.3 fL (8.0-11.0); Monocytes % 8.8 %; Neutrophils % 61.9 %; Platelet Count 146 10^3/uL (130-400); RDW 12.6 % (11.7-14.6); RDW-SD 45.2 fL
[2023-12-05 10:02] LABS: Absolute Lymphocyte Count 3.25 10^3/uL (1.2-3.4)
[2023-12-05 10:59] LABS: TSH (W/Ref FT4) 0.76 uIU/mL (0.36-3.74); Vitamin B12 412 pg/mL (193-986)
== END 2023-12-05 10:29 | disposition home or self-care (01) ==
LOC: LBO 10:29
PROVIDERS: Visit Provider Student in an Organized Health Care Education/Training Program
DX: R20.2 Paresthesia of skin (principal)
CPT/HCPCS: 36415; 82607; 84443; 85025

== ENCOUNTER 2023-12-06 00:21 | Outpatient (CLI) | payer MEDICAID, SELFPAY ==
--- NOTE | 2023-12-06 11:10 | DI.RAD_ITS ---
Exam(s) XR CERVICAL SPINE COMP 4-5V EXAM: XR CERVICAL SPINE COMP 4-5V CLINICAL HISTORY: PARESTHESIA UPPER LIMB, R20.2, PARESTHESIA OF SKIN. TECHNIQUE: 2D digital imaging was performed. COMPARISON: CR XR CERVICAL SPINE COMP 4-5V from 06/19/2021 FINDINGS: Five views No evidence of fracture, listhesis, nor offset of the spinal laminar line. All the disc spaces exhib it normal height. There are no cervical ribs. There is a calcification in the posterior neck soft t issues supraspinous ligament region incidentally noted. This does not have the appearance of a fract ure fragment. There are minimal degenerative changes in the facet joints. Bone density is normal. No osseous lesi ons. No cervical ribs. IMPRESSION: No significant radiographic findings on these five views of the cervical spinal column. DATA REPOSITORY: RADIATION DOSE DELIVERED:
== END 2023-12-06 00:41 ==
LOC: DI 00:21
PROVIDERS: Visit Provider Student in an Organized Health Care Education/Training Program
DX: R20.2 Paresthesia of skin (principal)
CPT/HCPCS: 72050

== ENCOUNTER 2023-12-12 09:00 | Outpatient (CLI) | payer MEDICAID, SELFPAY ==
[2023-12-12 09:21] LABS: Bilirubin Negative (Negative); Blood Large (Negative); Clarity Sl Cloudy (Clear); Glucose Negative (Negative); Ketones Trace mg/dL (Negative); Leukocyte Esterase Moderate (Negative); Nitrite Positive (Negative); Specific Gravity >= 1.030 (1.005-1.025); Urobilinogen 0.2 mg/dL (Up to 0.2)
[2023-12-12 09:41] LABS: Bacteria Many HPF (Negative); C & S Indicated? No/Sq. Contamination; Casts 0-2 Hyaline LPF (Negative); Crystals Negative HPF (Negative); Epithelial Cells Many HPF (Negative); Mucus Negative (Negative); RBC 20-50 HPF (0-2); WBC >50 HPF (0-5)
[2023-12-12 10:01] LABS: ESR 8 mm/hr (0-30)
[2023-12-12 10:10] LABS: ALT 22 U/L (14-59); AST 22 U/L (15-37); Albumin 3.8 g/dL (3.4-5.0); Alkaline Phosphatase 80 U/L (46-116); Anion Gap 8.3 mmol/L (3-11); BUN 12 mg/dL (7-18); Bilirubin, Total 0.53 mg/dL (0.2-1.0); CO2 26.7 mmol/L (21.0-32.0); CREATININE 0.7 mg/dL (0.55-1.02); Chloride 102 mmol/L (98-107); Estimated GFR 104.65 (mL/min/1.73m2); Glucose 103 mg/dL (74-106); Potassium 3.7 mmol/L (3.5-5.1); Sodium 137 mmol/L (136-145); Total Protein 7.6 g/dL (6.4-8.2)
[2023-12-12 10:14] LABS: C-Reactive Protein < 0.50 mg/dL (<or=0.5)
[2023-12-13 07:54] LABS: Lyme Ab w Rflx to Lyme Confirm Negative (Negative)
[2023-12-13 09:43] LABS: C3 Complement 130 mg/dL (81-157); C4 Complement 26 mg/dL (13-39)
[2023-12-13 10:49] LABS: Ro60 Ab, IgG <7.0 CU (<20.0); SS-A/Ro, IgG <2.3 CU (<20.0); SS-B (La) Ab, IgG <3.3 CU (<20.0)
[2023-12-14 16:07] LABS: c-ANCA Negative (Negative); p-ANCA Negative (Negative)
== END 2023-12-12 09:01 | disposition home or self-care (01) ==
LOC: LBO 09:01
PROVIDERS: Visit Provider Student in an Organized Health Care Education/Training Program
DX: R20.2 Paresthesia of skin (principal); R31.29 Other microscopic hematuria; R68.2 Dry mouth, unspecified
CPT/HCPCS: 36415; 80053; 85652; 81003; 81015; 82595; 86140; 86160; 86235; 86255; 86618

== ENCOUNTER 2023-12-16 11:37 | Outpatient (REF) | payer MEDICAID, SELFPAY ==
[2023-12-16 13:14] LABS: Bilirubin Negative (Negative); Blood Large (Negative); Clarity Sl Cloudy (Clear); Glucose Negative (Negative); Ketones Negative (Negative); Leukocyte Esterase Moderate (Negative); Nitrite Negative (Negative); Specific Gravity <= 1.005 (1.005-1.025); Urobilinogen 0.2 mg/dL (Up to 0.2); pH 5.5 (5-8)
[2023-12-16 13:31] LABS: Epithelial Cells Few HPF (Negative)
[2023-12-16 13:32] LABS: Bacteria Few HPF (Negative); C & S Indicated? C&S Done As Ordered; Crystals Negative HPF (Negative); Mucus Negative (Negative)
== END 2023-12-16 11:38 | disposition home or self-care (01) ==
LOC: LBN 11:37
PROVIDERS: Visit Provider Nurse Practitioner Gerontology
DX: N39.9 Disorder of urinary system, unspecified (principal); R31.29 Other microscopic hematuria; N95.2 Postmenopausal atrophic vaginitis
CPT/HCPCS: 87077; 81003; 81015; 87086; 87186

== ENCOUNTER 2024-08-21 00:14 | Outpatient (CLI) | payer MEDICAID, SELFPAY ==
--- NOTE | 2024-08-21 09:42 | DI.RAD_ITS ---
Exam(s) XR HIP PELVIS ADULT BL EXAM: XR HIP PELVIS ADULT BL CLINICAL HISTORY: ACUTE ON CHRONIC BILAT HIP PAIN,M25.551,M25.552,M25.551,H/O OA,?. TECHNIQUE: 2D digital imaging was performed. COMPARISON: No exams were available for comparison FINDINGS: 3 views No evidence of pelvic nor hip fracture. No hip joint space narrowing. No osteophytes. No evidence of a vascular necrosis. Bone density is normal. No osseous lesions. Sacroiliac joints appear unremarkable. IMPRESSION: No significant radiograph findings in the pelvis and hips. DATA REPOSITORY: RADIATION DOSE DELIVERED:
== END 2024-08-21 00:34 ==
LOC: DI 00:14
PROVIDERS: PCP Student in an Organized Health Care Education/Training Program; Visit Provider Nurse Practitioner Family
DX: M25.551 Pain in right hip (principal); M25.552 Pain in left hip
CPT/HCPCS: 73521